=== PATIENT | male | born 1965 | race Caucasian/White ===

== ENCOUNTER 2023-04-18 07:19 | Outpatient (CLI) | payer MEDICARE ==
[2023-04-18] MEDS ORDERED: Iopamidol 370 76% 100 ML VIAL ONE (14:46)
== END 2023-04-18 07:20 | disposition home or self-care (01) ==
LOC: CT 07:19
PROVIDERS: ATTEND Nurse Practitioner Family
DX: K42.9 Umbilical hernia without obstruction or gangrene (principal); K57.30 Diverticulosis of large intestine without perforation or abscess without bleeding; K76.0 Fatty (change of) liver, not elsewhere classified
CPT/HCPCS: 74178; Q9967